=== PATIENT | female | born 1950 | race Two or more races ===

== ENCOUNTER 2019-06-01 08:30 | Day surgery (SDC) | payer OTHER ==
[~2019-06-01 08:30] MED LIST: COZAAR100 MG PO; CRESTOR10 MG PO; ELIQUIS5 MG PO; LASIX20 MG PO; NORVASC2.5 M1 PO; PEPCID40 MG PO; PROTONIX40 MG PO
[2019-06-01] MEDS ORDERED: PERCOCET 5-3251 EACH PO (12:06)
[2019-06-01] MEDS ORDERED: COLACE100 MG PO (12:06)
== END 2019-06-01 19:00 | disposition home or self-care (01) ==
LOC: CIR.AMB 08:30
DX: K64.8 Other hemorrhoids (principal)

== ENCOUNTER 2021-09-21 06:45 | Day surgery (SDC) | payer OTHER ==
[~2021-09-21 06:45] MED LIST changes: +COLACE100 MG PO; +PERCOCET 5-3251 EACH PO
== END 2021-09-21 10:00 | disposition home or self-care (01) ==
LOC: AMB-ENDOS 06:45
PROVIDERS: ATTEND Surgery
DX: D12.0 Benign neoplasm of cecum (principal); D12.2 Benign neoplasm of ascending colon